=== PATIENT | male | born 1985 | race African-American/Black ===

== ENCOUNTER 2018-10-26 18:48 | Emergency (ER) | payer OTHER, BC ==
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
[2018-10-26] MEDS ORDERED: KETOROLAC TROMETHAMINE 60 MG/2 ML SDV IM ONE (21:36)
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
[2018-10-26 23:30] VITALS: BP 128/68
== END 2018-10-26 22:36 | disposition home or self-care (01) ==
LOC: ER 18:48
DX: M25.512 Pain in left shoulder (principal); V89.2XXA Person injured in unspecified motor-vehicle accident, traffic, initial encounter
CPT/HCPCS: 99283; 73030; J1885